=== PATIENT | female | born 1960 | race Two or more races ===

== ENCOUNTER 2023-09-02 14:06 | Emergency (ER) | payer MEDICAID ==
[~2023-09-02] VITALS: Ht 157.5 cm; Wt 91.0 kg
[2023-09-02 14:10] VITALS: O2SAT 97
[2023-09-02 14:47] LABS: BASOPHILS % 0.2 % (0.0-2.0); EOSINOPHILS % 1.1 % (0.0-5.0); HEMATOCRIT. 39.9 % (36.0-48.0); LYMPHOCYTES % 35.5 % (20.0-50.0); MEAN CORPUSCULAR HEMOGLOBIN 28.9 pg (28.0-32.0); MEAN CORPUSCULAR HGB CONC 32.6 g/dL (31.0-37.0); MEAN CORPUSCULAR VOLUME 88.7 fL (81.0-99.0); MEAN PLATELET VOLUME 8.3 fl (7.4-10.4); MONOCYTES % 7.5 % (2.0-8.0); NEUTROPHILS % 55.7 % (40.0-76.0); PLATELET 218 x1000/uL (130-400); RED CELL DISTRIBUTION WIDTH 13.2 % (11.6-14.6); WHITE BLOOD COUNT 8.6 x1000/uL (4.5-11.0)
[2023-09-02 14:52] LABS: CHLORIDE 103 mEq/L (98-107); POTASSIUM 4.3 mEq/L (3.5-5.1); SODIUM 136 mEq/L (136-145)
[2023-09-02 14:54] LABS: CARBON DIOXIDE 28 mEq/L (21-32)
[2023-09-02 14:58] LABS: CREATININE 0.8 mg/dL (0.6-1.0)
[2023-09-02 14:59] LABS: GLUCOSE 129 mg/dL (70-105); UREA NITROGEN BLOOD 11 mg/dL (9-23)
[2023-09-02 15:01] LABS: ALANINE AMINOTRANSFERASE 12 IU/L (10-49); ALBUMIN 3.9 g/dL (3.2-4.8); ASPARTATE AMINOTRANSFERASE 16 IU/L (<34); BILIRUBIN TOTAL 0.4 mg/dL (0.1-1.0); PROTEIN TOTAL 7.8 g/dL (6.0-8.3); TROPONIN I HIGH SENSITIVITY 25 ng/L (3.0-34)
[2023-09-02] MEDS: ASPIRIN 81MG TABLET PO ONE (15:07)
[2023-09-02] MEDS: KETOROLAC 15MG/ML VIAL IM ONE (17:11)
[2023-09-02 17:31] VITALS: BP 154/75; PULSE 92; RESP 20; TEMP 99
== END 2023-09-02 17:42 | disposition home or self-care (01) ==
LOC: ER 14:06
DX: M17.0 Bilateral primary osteoarthritis of knee (principal); G89.29 Other chronic pain; M25.462 Effusion, left knee; M25.461 Effusion, right knee; I11.0 Hypertensive heart disease with heart failure; I50.9 Heart failure, unspecified; E11.9 Type 2 diabetes mellitus without complications
CPT/HCPCS: 80053; 83880; 85025; 84484; 36415; 71045; 73130; 73562; 93005; 96372; 99285; Z7610 ×5; J1885

== ENCOUNTER 2024-04-23 15:31 | Emergency (ER) | payer OTHER ==
[~2024-04-23] VITALS: Ht 160 cm; Wt 113.0 kg
[2024-04-23 15:40] VITALS: PULSE 48; RESP 16; O2SAT 95
[2024-04-23] MEDS: NOREPINEPHRINE 8MG/250ML PMX 250 ML IV ONE (15:51)
[2024-04-23] MEDS ORDERED: EPINEPHRINE 10 MG in SODIUM CHLORIDE 0.9% 240 ML IV PRN ×2 (16:30→16:45)
[2024-04-23 16:34] LABS: HEMATOCRIT. 47.3 % (36.0-48.0); HEMOGLOBIN. 12.2 g/dL (12.0-16.0); MEAN CORPUSCULAR HEMOGLOBIN 29.4 pg (28.0-32.0); MEAN CORPUSCULAR HGB CONC 25.8 g/dL (31.0-37.0); MEAN CORPUSCULAR VOLUME 113.7 fL (81.0-99.0); MEAN PLATELET VOLUME 10.5 fl (7.4-10.4); PLATELET 114 x1000/uL (130-400); RED BLOOD CELL COUNT 4.16 mill/uL (4.2-5.4); RED CELL DISTRIBUTION WIDTH 16.5 % (11.6-14.6); WHITE BLOOD COUNT 16.6 x1000/uL (4.5-11.0)
[2024-04-23] MEDS: SODIUM CHLORIDE 0.9% 1,000 ML IV ONE (16:36)
[2024-04-23 16:43] LABS: CHLORIDE 94 mEq/L (98-107); SODIUM 130 mEq/L (136-145)
[2024-04-23 16:44] LABS: CALCIUM 8.2 mg/dL (8.7-10.4)
[2024-04-23 16:49] LABS: GLUCOSE 178 mg/dL (70-105); UREA NITROGEN BLOOD 53 mg/dL (9-23)
[2024-04-23 16:51] LABS: BG CARBOXYHEMOGLOBIN 0.3 % (0.5-1.5); BG DEOXYHEMOGLOBIN 2.1 % (0.0-5.0); BG FRACTION INSPIRED OXYGEN 100; BG METHEMOGLOBIN 0.1 % (0.5-1.5); BG OXYGEN SATURATION 97.9 % (94.0-98.0); BG OXYHEMOGLOBIN 97.5 % (94.0-98.0); BG PCO2 48.9 mmHg (32.0-45.0); BG PH < 6.686 (7.350-7.450); BG PO2 182.8 mmHg (83.0-108.0); BG SAMPLE SITE LEFT RADIAL; BG TOTAL HEMOGLOBIN 12.6 g/dL (12.0-16.0); BG TOTAL RESPIRATORY RATE 16 b/min; BG VENT MODE VENT - AC
[2024-04-23 16:58] LABS: CARBON DIOXIDE < 10 mEq/L (21-32); CREATININE 4.3 mg/dL (0.6-1.0)
[2024-04-23 16:59] LABS: PHOSPHORUS 15.5 mg/dL (2.5-4.9); TROPONIN I HIGH SENSITIVITY 803 ng/L (3.0-34)
[2024-04-23 17:00] LABS: POTASSIUM 7.3 mEq/L (3.5-5.1)
[2024-04-23] MEDS ORDERED: PROPOFOL 10MG/ML 100ML 100 ML IV SCH (17:00)
[2024-04-23] MEDS: SODIUM BICARBONATE 150 MEQ in DEXTROSE 5% WATER 850 ML IV SCH (17:00)
[2024-04-23] MEDS: SODIUM BICARBONATE 8.4% 50MEQ/50ML SYR IV ONE (17:04)
[2024-04-23] MEDS: CALCIUM CHLORIDE 1GM/10ML SYR IV ONE (17:04)
[2024-04-23 17:07] LABS: LACTIC ACID 22.1 mmol/L (0.4-2.0)
[2024-04-23 17:09] LABS: DIFFERENTIAL COMMENT 1
[2024-04-23] MEDS: INSULIN REGULAR (HUMULIN R) 1000UNITS/10ML VIAL IV ONE (17:10)
[2024-04-23] MEDS: DEXTROSE 50% WATER 50ML SYRINGE IV ONE ×2 (17:10)
[2024-04-23 17:13] LABS: D-DIMER 18.63 mg/L FEU (<0.50); INR 2.3; PROTHROMBIN TIME 24.6 sec (9.6-11.0)
[2024-04-23] MEDS: VANCOMYCIN 1G PREMIX 200 ML IV SCH (17:15)
[2024-04-23] MEDS: PANTOPRAZOLE SODIUM 40 MG/VIAL IV ONE (17:15)
[2024-04-23 17:27] VITALS: PULSE 80; RESP 26; O2SAT 96
[2024-04-23] MEDS: ALBUTEROL (0.083%) 2.5MG/3ML NEB HHN ONE (17:27)
[2024-04-23 17:44] LABS: PARTIAL THROMBOPLASTIN TIME 89.4 sec (23.4-31.0)
[2024-04-23 17:48] LABS: PLATELET ESTIMATE SLIGHTLY DECREASED
[2024-04-23 17:49] LABS: ANISOCYTOSIS 1+; GIANT PLATELETS 1+
[2024-04-23] MEDS ORDERED: BUDESONIDE 0.5MG/2ML NEB HHN SCH (18:00)
[2024-04-23] MEDS: NOREPINEPHRINE 8MG/250ML PMX 250 ML IV NR (18:25)
[2024-04-23 18:36] LABS: BG BASE EXCESS -27.4 mmol/L (-2.0-3.0); BG CARBOXYHEMOGLOBIN 0.3 % (0.5-1.5); BG FRACTION INSPIRED OXYGEN 100; BG HCO3 ACT 6.2 mmol/L (21.0-28.0); BG METHEMOGLOBIN 0.3 % (0.5-1.5); BG OXYHEMOGLOBIN 95.4 % (94.0-98.0); BG PCO2 38.2 mmHg (32.0-45.0); BG PH 6.828 (7.350-7.450); BG PO2 121.2 mmHg (83.0-108.0); BG SAMPLE SITE LEFT BRACHIAL; BG TOTAL HEMOGLOBIN 12.2 g/dL (12.0-16.0); BG TOTAL RESPIRATORY RATE 27 b/min; BG VENT MODE VENT - AC
[2024-04-23] MEDS: SODIUM CHLORIDE 0.9% 1,000 ML IV SCH (18:36)
[2024-04-23] MEDS: METHYLPREDNISOLONE SOD SUCC 40MG/ML (ACT-O-VIAL) IV SCH (18:36)
[2024-04-23] MEDS ORDERED: SODIUM BICARBONATE 8.4% 10MEQ/10ML SYR IV NR ×2 (18:45→19:00)
[2024-04-23] MEDS: OCTREOTIDE 1,000 MCG in SODIUM CHLORIDE 0.9% 98 ML IV NR (18:59)
[2024-04-23 19:34] VITALS: BP 126/35; PULSE 57; RESP 26; O2SAT 95
[2024-04-23 19:43] LABS: CHLORIDE 98 mEq/L (98-107); SODIUM 133 mEq/L (136-145)
[2024-04-23 19:49] LABS: CREATININE 4.1 mg/dL (0.6-1.0); GLUCOSE 288 mg/dL (70-105); UREA NITROGEN BLOOD 55 mg/dL (9-23)
[2024-04-23 19:51] LABS: ALBUMIN 2.9 g/dL (3.2-4.8); BILIRUBIN DIRECT 0.8 mg/dL (<=3.0); BILIRUBIN TOTAL 1.4 mg/dL (0.1-1.0)
[2024-04-23 19:53] LABS: POTASSIUM 5.3 mEq/L (3.5-5.1); TROPONIN I HIGH SENSITIVITY 1455 ng/L (3.0-34)
[2024-04-23 19:54] LABS: CARBON DIOXIDE < 10 mEq/L (21-32)
[2024-04-23 20:10] LABS: HEPATITIS B SURFACE ANTIGEN NEGATIVE (Negative)
[2024-04-23 20:31] LABS: HEPATITIS A AB IGM NEGATIVE (Negative)
[2024-04-23 20:32] LABS: HEPATITIS B CORE AB IGM REACTIVE (Negative); HEPATITIS C AB REACTIVE (Pos) (Negative)
[2024-04-23 20:34] LABS: ALANINE AMINOTRANSFERASE 1213 IU/L (10-49); ASPARTATE AMINOTRANSFERASE 5748 IU/L (<34)
[2024-04-23] MEDS ORDERED: IPRATROPIUM/ALBUTEROL 0.5-3(2.5)MG/3ML NEB HHN SCH (21:00)
[2024-04-23] MEDS ORDERED: PIPERACILLIN/TAZO 3.375G/50ML 50 ML IV SCH (22:00)
[2024-04-23] MEDS ORDERED: CEFEPIME 1GM PREMIX 50ML IV SCH (22:30)
[2024-04-23] MEDS ORDERED: SODIUM BICARBONATE 8.4% 50MEQ/50ML SYR IV NR (22:45)
[2024-04-24] MEDS ORDERED: SEVELAMER CARBONATE 800 MG TABLET PO SCH (09:00)
[2024-04-24] MEDS ORDERED: PANTOPRAZOLE SODIUM 40 MG/VIAL IV SCH (09:00)
[2024-04-24] MEDS ORDERED: CEFEPIME 1GM IN DEXT 5% 50ML IV SCH (09:00)
== END 2024-04-23 23:10 ==
LOC: ER 15:31 → EDBEDREQTM 17:38 → EDBEDREQ 17:38 → ER 23:10
DX: T68.XXXA Hypothermia, initial encounter (principal); I46.9 Cardiac arrest, cause unspecified; J96.01 Acute respiratory failure with hypoxia; G93.41 Metabolic encephalopathy; E87.5 Hyperkalemia; K72.00 Acute and subacute hepatic failure without coma; A41.9 Sepsis, unspecified organism; I25.2 Old myocardial infarction; I21.4 Non-ST elevation (NSTEMI) myocardial infarction; I13.0 Hypertensive heart and chronic kidney disease with heart failure and stage 1 through stage 4 chronic kidney disease, or unspecified chronic kidney disease; I11.0 Hypertensive heart disease with heart failure; I50.9 Heart failure, unspecified; K21.9 Gastro-esophageal reflux disease without esophagitis; N18.9 Chronic kidney disease, unspecified
CPT/HCPCS: 80076; 80048; 82962; 83036; 83880; 83605; 83690; 83735; 84100; 85025; 85379; 85610; 85730; 86850; 86900; 86901; 87340; 87040; 84484; 36415; 86705; 86709; 84145; 71045; 94640; 82805; 82375; 31500 ×2; 94664; 93005; 94070; 36556; 96367; 96361; 96365; 96375; 99291; 36600; J3490 ×4; J0692; J2354; J1815; J2920; J2470; J2704; J3370; Z7610 ×9; J7070; J7050; J7030; 94002